=== PATIENT | female | born 1945 | race Caucasian/White ===

== ENCOUNTER 2018-04-14 15:08 | Inpatient (IN) | payer MEDICARE ==
[2018-04-14] MEDS ORDERED: Ondansetron ODT 8 MG TAB ONE (15:35)
[2018-04-14] MEDS ORDERED: Diazepam 5 MG TAB ONE (15:35)
[2018-04-14] MEDS ORDERED: Morphine 10 MG/ML VIAL ONE (15:37)
--- NOTE | 2018-04-14 16:18 | RAD ---
RIGHT HIP TWO VIEW 04/14/18 HISTORY: Pain. Trauma. COMPARISON: None. FINDINGS: There is a transcervical right femoral neck fracture with mild varus angulation and impaction. IMPRESSION: Mild varus angulated impacted transcervical right femoral neck fracture. POS: [facility]
--- NOTE | 2018-04-14 16:19 | RAD ---
RIGHT KNEE FOUR VIEW 04/14/18 HISTORY: Trauma. COMPARISON: None. FINDINGS: No significant joint effusion. No acute displaced fracture or malalignment. Mild medial compartment n arrowing and small osteophyte formation. IMPRESSION: Mild degenerative changes. No acute abnormality. POS: [facility]
--- NOTE | 2018-04-14 16:20 | RAD ---
PELVIS ONE VIEW 04/14/18 HISTORY: Fall, trauma. COMPARISON: None. FINDINGS: Over the right hip, there is some bowel gas which could be sequela of a hernia. transcervical right f emoral neck fracture. Mild varus angulation impaction. IMPRESSION: Transcervical right femoral neck fracture with impaction and varus angulation. POS: [facility]
[2018-04-14 16:49] LABS: #Eosinphils 0.1 thou/uL (0.0-0.7); #Lymphocytes 1.5 thou/uL (1.20-3.40); #Monocytes 0.7 thou/uL (0.11-0.59); #Neutrophils 7.2 thou/uL (1.40-6.50); %Basophils 0.2 % (0.0-1.0); %Lymphocytes 16.1 % (21.0-51.0); %Monocytes 6.9 % (0.0-10.0); %Neutrophils 75.9 % (42.0-75.0); Hemoglobin 12.4 g/dL (12.0-16.0); Mean Corpuscular Hemoglobin 31.7 pg (27.0-31.0); Mean Corpuscular Volume 93.4 fL (78.0-98.0); Mean Platelet Volume 6.9 fL (7.4-10.4); Platelet Count 292 thou/uL (130-400); RBC Distribution Width 11.8 % (11.5-14.5); Red Blood Cell (RBC) Count 3.92 mill/uL (4.20-5.40); White Blood Cell (WBC) Count 9.5 thou/uL (4.8-10.8)
--- NOTE | 2018-04-14 17:26 | HP ---
DATE OF ADMISSION: 04/14/2018 REQUESTING PHYSICIAN: Carina Drake M.D. ATTENDING SURGEON: Dr. He. CONSULTATIONS: Orthopedics, Dr. Dominique. HISTORY OF PRESENT ILLNESS: Patient is a 73-year-old woman who reportedly greater than 24 hours ago fell in her home, landing on her right side. The patient was self medicating with her ampl e supply of Bajadero over the time prior to presenting to the emergency room. Finally her pain was not able to be controlled. She was unable to ambulate, so [facility] underwent evaluation and examination and was noted to have a right hip fracture at which time we w ere asked to evaluate the patient for admission and obtain orthopedic consultations. The patient den ied loss of consciousness or hitting her head or any syncopal type episodes. ALLERGIES: STADOL and THORAZINE. CURRENT MEDICATIONS: Nexium, Celebrex, Bystolic, [place] 10/325, patient states she takes 6-8 per day, Xanax. PAST MEDICAL HISTORY: Migraines, chronic back pain, sciatica, gastroesophageal reflux disease, hyper tension. PAST SURGICAL HISTORY: Hemorrhoidectomy and hysterectomy. SOCIAL HISTORY: The patient denies drug, tobacco or alcohol use. She currently resides at home with family. FAMILY HISTORY: Family medical history of kidney disease. REVIEW OF SYSTEMS: Ten-point review of systems negative, unless otherwise stated. PHYSICAL EXAMINATION: VITAL SIGNS: Blood pressure 122/82, heart rate 75, respirations 18, oxygen saturation 96% on room ai r, temperature is 98.7. GENERAL: The patient is resting comfortably in bed. She is awake, alert, and oriented x3. Parker coma scale is 15. HEENT: Head is normocephalic, atraumatic. Eyes: Extraocular motion intact. PERRLA bilaterally. E ars are atraumatic without discharge. Nose is atraumatic with discharge. Oropharynx is clear. NECK: Nontender. Trachea is midline. No JVD. CHEST: Clear to auscultation with good inspiratory and expiratory effort. HEART: Regular rate and rhythm. ABDOMEN: Soft, flat, nontender with active bowel sounds. Pelvis is stable with tenderness to palpat ion to the right hip consistent with her fracture. EXTREMITIES: Neurovascularly intact x4. Capillary refill is less than 3 seconds. BACK: By report is nontender and atraumatic. LABORATORY DATA: White blood cell count 9.5, hemoglobin 12.4, hematocrit 36.6, platelets 292. Chemi stry is pending. RADIOGRAPHIC FINDINGS: 1. AP pelvis shows a transcervical right femoral neck fracture with impaction and varus angulation. Two views of the right hip show a mild varus angulated impacted transcervical right femoral neck fra cture. 2. Four views of the right knee show mild degenerative changes, no acute abnormality. ASSESSMENT AND PLAN: 1. Status post ground level fall with a remote presentation. 2. Right hip fracture. 3. Acute on chronic pain. 4. History of significant Bajadero use which may make pain control somewhat challenging. 5. History of hypertension. 6. History of anxiety. Plan will be to admit the patient to the surgical floor. She will be made n.p.o. after midnight. Sh e will have p.o. pain medication, pulmonary toilet, gastritis, mechanical VTE prophylaxis. After mid night, we will switch her pain medications to IV. The evaluation, examination, laboratory and radiog raphic findings were discussed with Dr. Salmon who plans on taking the patient to the operating room t omorrow. This case will also be discussed with Dr. He after this dictation.
[2018-04-14 17:44] LABS: ALT (SGPT) 20 U/L (8-55); AST (SGOT) 25 U/L (5-34); Alkaline Phosphatase 100 U/L (40-150); Anion Gap 16 mmol/L (10-20); BUN (Urea Nitrogen) 21 mg/dL (9.8-20.1); Bilirubin, Total 0.5 mg/dL (0.2-1.2); Calc. Creatinine Clearance 0 mL/min (70-130); Calcium 9.2 mg/dL (7.8-10.44); Carbon Dioxide 26 mmol/L (23-31); Chloride 101 mmol/L (98-107); Estimated GFR-MDRD 50; Globulin 3.7 g/dL (2.4-3.5); Glucose 105 mg/dL (83-110); Potassium 4.1 mmol/L (3.5-5.1); Protein, Total 7.7 g/dL (6.0-8.3); Sodium 139 mmol/L (136-145)
--- NOTE | 2018-04-14 17:53 | RAD ---
CHEST ONE VIEW: 04/14/18 HISTORY: Preop. FINDINGS: The cardiac silhouette is magnified by projection and upper limits of normal in size. Pulmonary vascu lature is unremarkable. mediastinum is midline. No confluent air space consolidation or evidence of p neumothorax. IMPRESSION: No active cardiopulmonary abnormalities are demonstrated. POS: [facility]
[2018-04-14] MEDS ORDERED: HYDROcodone/Acetaminophen 10/325 mg Tablet PO PRN ×2 (20:24)
[2018-04-14] MEDS ORDERED: Ondansetron HCl/PF 4 MG/2 ML Vial IVP PRN (20:24)
[2018-04-14] MEDS ORDERED: Cyclobenzaprine 10 MG TAB PO PRN (20:24)
[2018-04-14] MEDS ORDERED: Ondansetron ODT 4 MG TAB PO PRN (20:24)
[2018-04-14] MEDS ORDERED: Dextrose 50% Abboject 50 ML SYRINGE SLOW IVP PRN (20:24)
[2018-04-14] MEDS ORDERED: hydrALAZINE 20 MG/ML VIAL SLOW IVP PRN (20:24)
[2018-04-14] MEDS ORDERED: Dextrose 5% in Water 1,000 ML IV PRN (20:24)
[2018-04-14] MEDS ORDERED: Morphine CADD 1 MG/ML CADD IV PRN (20:32)
[2018-04-14] MEDS ORDERED: Diazepam 5 MG TAB PO PRN (20:34)
[2018-04-14] MEDS: Famotidine/PF 20 mg/2ml Vial SLOW IVP SCH (21:10)
[2018-04-14] MEDS ORDERED: Ibuprofen 200 MG TAB PO SCH (22:00)
[2018-04-14 23:15] VITALS: BMI 33.1
[2018-04-15] MEDS: Sodium Chloride 0.9% 1,000 ML IV SCH ×3 (00:05→19:17)
[2018-04-15] MEDS: Acetaminophen 1,000 MG in Premix Bag 1 BAG IVPB SCH ×4 (00:55→17:39)
[2018-04-15] MEDS: Ketorolac Tromethamine 30 MG/ML VIAL IVP SCH ×6 (00:55→17:40)
--- NOTE | 2018-04-15 02:13 | CON ---
DATE OF CONSULTATION: 04/14/2018 HISTORY OF PRESENT ILLNESS: Ms. Carcamo is a 73-year-old white female who was at home, fell onto he r right side and had immediate pain. The patient was able to ambulate with pain for several hours, b ut eventually the patient was unable to control her pain with the [place] she had at home and was unab le to ambulate. She was brought to the emergency room, which showed a displaced femoral neck fractur e of the right hip. She had no previous problems with her hip prior to the fall. PAST MEDICAL HISTORY: Medical illnesses: Migraines, chronic back pain, sciatica, GERD, hypertension . CURRENT MEDICATIONS: Nexium, Celebrex, Bystolic, [place], Xanax. ALLERGIES: STADOL and THORAZINE. PAST SURGICAL HISTORY: Hysterectomy and hemorrhoidectomy. SOCIAL HISTORY: The patient lives at home with family. She denies drug, tobacco, or alcohol use. FAMILY HISTORY: Positive for kidney disease. PHYSICAL EXAMINATION: GENERAL: Patient is a pleasant female, alert and oriented x3. VITAL SIGNS: Blood pressure 124/78, pulse 74, respiratory rate 16, O2 saturation 97% on room air, te mperature 98.7. HEENT: Unremarkable for age. Cranial nerves II-XII are grossly intact. NECK: Has good range of motion without pain. Thoracic and lumbar spine are nontender to palpation. LUNGS: Clear bilaterally. HEART: Regular rate and rhythm. ABDOMEN: Soft, nontender, bowel sounds positive. GENITOURINARY: Not done. EXTREMITIES: Patient has shortening and external rotation deformity of the right lower extremity. S he has good peripheral pulses and normal sensation in the right lower extremity. IMAGING: X-rays of the hip shows displaced fracture of the lower neck of the proximal femur. There are no significant arthritic changes in the hip joint. IMPRESSION: 1. Displaced femoral neck fracture of the right hip. 2. Hypertension. 3. Gastroesophageal reflux disease. 4. History of chronic back pain. 5. Migraines. PLAN: Patient will require proximal femoral replacement of the right hip. We will plan on performin g this tomorrow morning. Potential risks with the condition of surgery include but are not limited t o infection, bleeding, pain, damage to blood vessels or nerves, loosening or instability of the prost hesis. Patient may require additional surgery, DVT and PE formation. Patient's questions were answe red and agreed to the procedure.
[2018-04-15 05:27] LABS: #Eosinphils 0.3 thou/uL (0.0-0.7); #Lymphocytes 2.5 thou/uL (1.20-3.40); #Monocytes 0.7 thou/uL (0.11-0.59); #Neutrophils 4.1 thou/uL (1.40-6.50); %Basophils 0.5 % (0.0-1.0); %Eosinophils 4.1 % (0.0-10.0); %Monocytes 8.9 % (0.0-10.0); %Neutrophils 53.6 % (42.0-75.0); Hemoglobin 10.8 g/dL (12.0-16.0); Mean Corpuscular HGB CONC 33.8 g/dL (32.0-36.0); Mean Corpuscular Hemoglobin 31.9 pg (27.0-31.0); Mean Corpuscular Volume 94.5 fL (78.0-98.0); Mean Platelet Volume 7.1 fL (7.4-10.4); Platelet Count 270 thou/uL (130-400); RBC Distribution Width 11.8 % (11.5-14.5); Red Blood Cell (RBC) Count 3.39 mill/uL (4.20-5.40); White Blood Cell (WBC) Count 7.7 thou/uL (4.8-10.8)
[2018-04-15 05:37] LABS: Anion Gap 12 mmol/L (10-20); BUN (Urea Nitrogen) 20 mg/dL (9.8-20.1); Calc. Creatinine Clearance 67 mL/min (70-130); Calcium 8.5 mg/dL (7.8-10.44); Carbon Dioxide 28 mmol/L (23-31); Chloride 104 mmol/L (98-107); Estimated GFR-MDRD 53; Glucose 92 mg/dL (83-110); Potassium 3.9 mmol/L (3.5-5.1); Sodium 140 mmol/L (136-145)
[2018-04-15] MEDS ORDERED: CEFAZOLIN/Water 2 GM/20 ML SYRINGE SLOW IVP SCH (06:00)
[2018-04-15] MEDS ORDERED: Fentanyl 100 MCG/2 ML VIAL ONE (08:00)
[2018-04-15] MEDS ORDERED: CEFAZOLIN 1 GM VIAL ONE (08:01)
[2018-04-15] MEDS ORDERED: Sodium Chloride 0.9% 100 ML ONE (08:02)
[2018-04-15] MEDS ORDERED: HYDROcodone/Acetaminophen 10/325 mg Tablet PO PRN (08:17)
[2018-04-15] MEDS ORDERED: ALPRAZolam 0.5 MG TAB PO PRN (08:17)
[2018-04-15] MEDS ORDERED: Ondansetron ODT 4 MG TAB PO PRN (08:22)
[2018-04-15] MEDS ORDERED: Ondansetron HCl/PF 4 MG/2 ML Vial IVP PRN ×3 (08:22→10:48)
[2018-04-15] MEDS ORDERED: Bisacodyl 10 MG SUPP PR PRN (08:22)
[2018-04-15] MEDS ORDERED: Cepastat Lozenges 1 LOZ PO PRN (08:22)
[2018-04-15] MEDS ORDERED: Fleet Enema 133 ML BOT PR PRN (08:22)
[2018-04-15] MEDS ORDERED: Milk Of Magnesia 30 ML UDCUP PO PRN (08:22)
[2018-04-15] MEDS: CEFAZOLIN/Water 2 GM/20 ML SYRINGE SLOW IVP SCH ×2 (09:00→17:40)
[2018-04-15] MEDS: Enoxaparin Sodium 40 MG/0.4 ML SYRINGE SC SCH (09:01)
[2018-04-15] MEDS: Ferrous Gluconate 324 MG TAB PO SCH ×2 (09:01→21:16)
[2018-04-15] MEDS: Famotidine/PF 20 mg/2ml Vial SLOW IVP SCH (09:01)
[2018-04-15] MEDS ORDERED: Neomycin-Polymyxin 1 ML AMP ONE (09:01)
[2018-04-15] MEDS: Senokot S 8.6-50 MG TAB PO SCH ×2 (09:01→21:16)
[2018-04-15] MEDS: Multivitamin W/ Minerals 1 TAB PO SCH (09:01)
[2018-04-15] MEDS ORDERED: Bupivacaine HCl 0.5%/Epinephrine 1:200,000/PF 30 ml Vial ONE (09:33)
[2018-04-15] MEDS ORDERED: PHENYLEPHRINE-NS 100 MCG/ML 10 ML SYRINGE ONE ×2 (09:44→15:11)
[2018-04-15] MEDS ORDERED: Meperidine HCl/PF 25 MG/ML VIAL SLOW IVP PRN (10:06)
[2018-04-15] MEDS ORDERED: Zolpidem Tartrate 5 MG TAB PO PRN ×2 (10:09→10:48)
[2018-04-15] MEDS ORDERED: diphenhydrAMINE 50 MG/ML VIAL IM PRN (10:09)
[2018-04-15] MEDS ORDERED: diphenhydrAMINE 50 MG/ML VIAL IVP PRN (10:09)
[2018-04-15] MEDS ORDERED: diphenhydrAMINE 25 MG CAP PO PRN ×2 (10:09→10:48)
[2018-04-15] MEDS ORDERED: Naloxone HCl 0.4 mg/ml Vial IV PRN ×2 (10:09→10:48)
[2018-04-15] MEDS ORDERED: Communication Order-Pharmacy FS SCH (10:15)
[2018-04-15] MEDS ORDERED: fentaNYL Citrate/PF 2,000 MCG in Sodium Chloride 0.9% 60 ML IV PRN (10:48)
[2018-04-15] MEDS ORDERED: diphenhydrAMINE 50 MG/ML VIAL IM/IV PRN (10:48)
--- NOTE | 2018-04-15 11:26 | OP ---
DATE OF OPERATION: 04/15/2018 PREOPERATIVE DIAGNOSIS: Displaced femoral neck fracture of the right hip. POSTOPERATIVE DIAGNOSIS: Displaced femoral neck fracture of the right hip. PROCEDURE: Proximal femoral replacement using a bipolar prosthesis of the right hip. SURGEON: Jared Dominique M.D. ANESTHESIA: General. TECHNIQUE: The patient was given preoperative IV antibiotics, taken to the operating room, placed in the supine position. Satisfactory general anesthesia was performed. The patient was placed in the left lateral decubitus position. All bony prominences were well-padded, and the right hip and lower extremity were sterilely prepped and draped in usual fashion. A longitudinal incision was made over the lateral aspect of the hip, centered over the greater trochanter, approximately 6-7 inches in garrett th. Anterolateral approach was made to the hip joint. Anterior capsule was excised. The fracture o f the femoral neck was identified. The femoral head was removed and was measured as 47 mm in diamete r. There were no arthritic changes over the femoral head or in the acetabulum. The few bony fragmen ts were removed from the acetabulum. Proximal femur was then prepared initially with a box osteotome , then a hand Charnley reamer was then sequentially rasped up to #5 and the proximal femoral rasp was sequentially rasped up to 5 where it was noted to have excellent fit. Calcar reamer was then utiliz ed and different trials were then placed. The [employer] instrumentation was utilized. The +5 nec k with the 28 mm head and 47 mm bipolar was found to have the excellent fit and hoahaoism of leg le ngth. Trials were removed, and the hip joint was copiously irrigated with antibiotic solution using the high-speed international trade compliance manager. The prosthesis was then inserted into the proximal femur. This was a Summ it size 5 basic press fit femoral stem with a +5 neck, 28 mm head, and a 47 mm bipolar. Again, this was known to have excellent fit in the proximal femur. The hip joint was reduced, placed through a r jun of motion, is very stable, and had good range of motion. Wound again was irrigated and then gianluca sed using #2 Vicryl for the anterior fibers of the abductor muscles, #2 Vicryl for the iliotibial ban d, 0 Vicryl for the fat and subcutaneous tissue, and the skin was closed with skin oren. The woun d was then infiltrated with 30 mL of 0.5% Marcaine with epinephrine. Sterile dressing was applied. The patient was awakened, extubated, and transferred to the recovery room in stable condition. ESTIMATED BLOOD LOSS: 250 mL. COMPLICATIONS: None.
--- NOTE | 2018-04-15 13:18 | RAD ---
TWO VIEWS OF THE RIGHT HIP: DATE: 04/15/18. COMPARISON: 04/14/18. HISTORY: Evaluate hip following arthroplasty. FINDINGS: There is postoperative gas adjacent to the proximal right femur laterally. There is a new right hip arthroplasty with no evidence for hardware failure. IMPRESSION: Postoperative changes consistent with recent right total hip arthroplasty. No acute findings. POS: [facility]
[2018-04-15] MEDS ORDERED: Lidocaine 1% PF 5 ML VIAL ONE (15:11)
[2018-04-15] MEDS ORDERED: Ondansetron HCl/PF 4 MG/2 ML Vial ONE (15:11)
[2018-04-15] MEDS ORDERED: ePHEDrine/0.9% NaCl/PF SYRINGE 50 mg/10 ml ONE (15:11)
[2018-04-15] MEDS ORDERED: Glycopyrrolate 0.2 MG/ML 5 ML SYRINGE ONE (15:11)
[2018-04-15] MEDS ORDERED: Dexamethasone 20 MG/5 ML VIAL ONE (15:11)
[2018-04-15] MEDS ORDERED: Metoclopramide HCl 10 MG/2 ML VIAL ONE (15:11)
[2018-04-15] MEDS ORDERED: PROPOFOL 200 MG/20 ML VIAL ONE (15:11)
--- NOTE | 2018-04-15 16:16 | HP ---
CHIEF COMPLAINT: Fall with right hip pain. HISTORY OF PRESENT ILLNESS: The patient is a 73-year-old female who tripped over a blanket at the fo ot of her bed and fell on her right hip. She developed severe pain, really could not get back up, bu t she had her phone and she called her who helped to get back in bed. She felt like next day that she be feeling better and so she came into the emergency room and was found to have a right hip fracture. PAST MEDICAL HISTORY: Chronic back pain, torn meniscus, hypertension. PAST SURGICAL HISTORY: Hemorrhoidectomy, I&D of Staph infection suprapubic, oral surgery and bladder suspension. 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 She is . No tobacco or alcohol. FAMILY HISTORY: Noncontributory. MEDICATIONS: Include Nexium, Celebrex, Rocephin, Bystolic, [place] and Xanax. PHYSICAL EXAMINATION: VITAL SIGNS: Temperature 98, pulse 72 and blood pressure 92/56. GENERAL: Well-developed, well-nourished female in no apparent distress. HEENT: Unremarkable. LUNGS: Clear. HEART: Regular rate and rhythm. ABDOMEN: Soft, nondistended, nontender. MUSCULOSKELETAL: She has a bandage in place in the right hip. Good pulses. LABORATORY DATA AND IMAGING DATA: White count 7.7, hemoglobin and hematocrit 10 and 32, platelet cou nt 270. Electrolytes are fine. X-ray shows an angulated impacted transcervical right femoral neck f racture. Chest x-ray unremarkable, pelvic x-ray unremarkable as well as the knee. ASSESSMENT: Right hip fracture. PLAN: She was in surgery this morning. She is out now. She is doing well. We will discontinue pos toperative care.
[2018-04-15] MEDS: Famotidine 20 MG TAB PO SCH (21:16)
[2018-04-15] MEDS ORDERED: Ibuprofen 200 MG TAB PO SCH (22:00)
[2018-04-16] MEDS: Ketorolac Tromethamine 30 MG/ML VIAL IVP SCH ×4 (00:41→17:15)
[2018-04-16 04:09] LABS: Hemoglobin 9.3 g/dL (12.0-16.0); Mean Corpuscular Hemoglobin 32.9 pg (27.0-31.0); Mean Corpuscular Volume 94.2 fL (78.0-98.0); Mean Platelet Volume 6.9 fL (7.4-10.4); Platelet Count 229 thou/uL (130-400); RBC Distribution Width 11.6 % (11.5-14.5); Red Blood Cell (RBC) Count 2.82 mill/uL (4.20-5.40); White Blood Cell (WBC) Count 8.6 thou/uL (4.8-10.8)
[2018-04-16] MEDS: Sodium Chloride 0.9% 1,000 ML IV SCH ×2 (06:50→17:18)
[2018-04-16] MEDS: Senokot S 8.6-50 MG TAB PO SCH ×2 (10:40→22:03)
[2018-04-16] MEDS: Famotidine 20 MG TAB PO SCH ×2 (10:40→22:03)
[2018-04-16] MEDS: Multivitamin W/ Minerals 1 TAB PO SCH (10:40)
[2018-04-16] MEDS: Ferrous Gluconate 324 MG TAB PO SCH ×2 (10:40→22:03)
[2018-04-16] MEDS: Enoxaparin Sodium 40 MG/0.4 ML SYRINGE SC SCH (10:41)
--- NOTE | 2018-04-16 15:03 | PRG ---
DATE OF SERVICE: 04/16/2018 SUBJECTIVE: The patient is hospital day 2, postop day #1, status post ground level fall with a remot e presentation, which she sustained a right hip fracture. She subsequently undergone open reduction internal fixation of the same. She tolerated this procedure well. The patient had a previous signif icant daily narcotic use due to this chronic back pain necessitating some difficulty getting her pain controlled. Anesthesia has started the patient on a fentanyl PURCHASING CONTRACTING CLERK, which the patient states it helps "for the most part." Today is the first day she is going to try to work with physical and occupatio nal therapy. She is tolerating a diet. She has no other complaints. PHYSICAL EXAMINATION: VITAL SIGNS: Temperature is 98.2, heart rate 92, blood pressure 105/65, respirations 16, oxygen satu ration is 95% on room air. GENERAL: The patient is resting comfortably in bed. She is awake, alert, and oriented x3. [place] coma scale is 15. Patient was working with physical and occupational therapy, smiling, laughing, javon eared comfortable yet stated her pain was 9/10. LUNGS: Clear to auscultation bilaterally with good inspiratory and expiratory effort. HEART: Regular rate and rhythm. ABDOMEN: Soft, flat, nontender with active bowel sounds. Pelvis is stable. EXTREMITIES: Neurovascularly intact x4. Postop dressing is clean, dry, and intact. LABORATORY DATA: White blood cell count 8.6, hemoglobin 9.3, hematocrit 26.6, platelets 229. There are no radiographs to review this morning. ASSESSMENT AND PLAN: 1. Status post ground level fall with remote presentation. 2. Status post open reduction internal fixation of right hip fracture. 3. Chronic narcotic use, currently on PURCHASING CONTRACTING CLERK. Plan will be to discuss with the anesthesiologist to try to transition the patient to p.o. pain medic ation, so that she may be placed hopefully in an inpatient rehab. Should she required prolonged PURCHASING CONTRACTING CLERK, she may require care home or swing bed facility. Otherwise, we will remain continuing support isadora care.
--- NOTE | 2018-04-16 15:51 | TCOM ---
DATE OF SERVICE: 04/16/2018 Ms. Carcamo one-day status post bipolar prosthesis of the right hip. She is doing well. She was ab le to get up with therapy and walked out in the [place] for short distances. She was sitting up in a ch air. The patient is afebrile. Vital signs are stable. Laboratory shows hemoglobin 9.3, hematocrit 26.6. The right lower extremity is neurovascularly intact. PLAN: The patient will continue with physical and occupational therapy. We look at possible going t o rehab at discharge.
[2018-04-17] MEDS: Ketorolac Tromethamine 30 MG/ML VIAL IVP SCH ×2 (01:10→06:07)
[2018-04-17] MEDS: Sodium Chloride 0.9% 1,000 ML IV SCH ×2 (03:00→14:29)
[2018-04-17 04:28] LABS: #Eosinphils 0.2 thou/uL (0.0-0.7); #Lymphocytes 2.4 thou/uL (1.20-3.40); #Monocytes 0.7 thou/uL (0.11-0.59); #Neutrophils 3.6 thou/uL (1.40-6.50); %Basophils 0.7 % (0.0-1.0); %Eosinophils 2.7 % (0.0-10.0); %Lymphocytes 34.9 % (21.0-51.0); %Neutrophils 51.6 % (42.0-75.0); Hemoglobin 8.6 g/dL (12.0-16.0); Mean Corpuscular HGB CONC 34.5 g/dL (32.0-36.0); Mean Corpuscular Volume 95.7 fL (78.0-98.0); Mean Platelet Volume 6.7 fL (7.4-10.4); Platelet Count 216 thou/uL (130-400); RBC Distribution Width 11.9 % (11.5-14.5); Red Blood Cell (RBC) Count 2.59 mill/uL (4.20-5.40); White Blood Cell (WBC) Count 6.9 thou/uL (4.8-10.8)
[2018-04-17 04:41] LABS: Anion Gap 9 mmol/L (10-20); BUN (Urea Nitrogen) 16 mg/dL (9.8-20.1); Calc. Creatinine Clearance 95 mL/min (70-130); Carbon Dioxide 26 mmol/L (23-31); Chloride 109 mmol/L (98-107); Estimated GFR-MDRD 79; Glucose 100 mg/dL (83-110); Magnesium 1.8 mg/dL (1.6-2.6); Phosphorus 2.5 mg/dL (2.3-4.7); Potassium 3.5 mmol/L (3.5-5.1); Sodium 140 mmol/L (136-145)
[2018-04-17] MEDS ORDERED: Gabapentin 100 MG CAP PO SCH (09:00)
[2018-04-17] MEDS: Enoxaparin Sodium 40 MG/0.4 ML SYRINGE SC SCH (09:57)
[2018-04-17] MEDS: Senokot S 8.6-50 MG TAB PO SCH ×2 (09:58→20:26)
[2018-04-17] MEDS: Multivitamin W/ Minerals 1 TAB PO SCH (09:58)
[2018-04-17] MEDS: Ferrous Gluconate 324 MG TAB PO SCH ×2 (09:58→20:27)
[2018-04-17] MEDS: Famotidine 20 MG TAB PO SCH ×2 (09:58→20:24)
[2018-04-17] MEDS: HYDROcodone/Acetaminophen 10/325 mg Tablet PO SCH ×3 (11:28→20:24)
[2018-04-17] MEDS: Polyethylene Glycol 3350 17 GM Packet PO SCH (11:29)
--- NOTE | 2018-04-17 12:24 | PRG-2 ---
DATE OF SERVICE: 04/17/2018 SUBJECTIVE: This is a 73-year-old female, hospital day #3, POD 2, status post proximal femoral repla cement using bipolar prosthesis of the right hip. She reports that she is doing well this morning. She states that she has some discomfort and fatigue after working with physical therapy. Otherwise, states she is okay. The patient reports tolerating her diet. Denies any nausea, vomiting, chest neelam n or shortness of breath. PHYSICAL EXAMINATION: VITAL SIGNS: Temperature 98.9, heart rate 99, respirations 18, pulse ox 92% on room air, blood press ure 126/78. GENERAL: The patient is lying in bed in no acute distress. The patient and I carried on a pleasant conversation during this time. LUNGS: Clear to auscultation bilaterally with good inspiratory effort. HEART: Regular rate and rhythm with no murmurs. ABDOMEN: Soft, nontender with positive bowel sounds. EXTREMITIES: Neurovascularly intact x4. NEUROLOGIC: Awake, alert and oriented x3. No focal deficits. LABORATORY DATA: CBC; white blood count 6.9, hemoglobin 8.6, hematocrit 24.8, MCV 85.7, platelet cou nt 216. BMP: Sodium 140, potassium 3.5, chloride 109, bicarbonate 26, BUN 16, creatinine 0.79, gluc ose 100. ASSESSMENT: 1. Status post ground level fall with remote presentation. 2. Status post proximal femoral replacement using bipolar prosthesis of right hip. 3. Chronic narcotic use. PLAN: We discontinued the MAP DRAFTER pump today. The patient has been switched to [place] 10 q.4h. DISPOSITION: The patient is discharged to inpatient rehab in the next 1-[address] Foreman saw this patient and we discussed the treatment plan.
[2018-04-17] MEDS ORDERED: HYDROcodone/Acetaminophen 10/325 mg Tablet PO SCH (15:30)
[2018-04-17] MEDS: Gabapentin 100 MG CAP PO SCH ×2 (16:22→20:27)
[2018-04-17] MEDS: cloNIDine 0.1 MG TAB PO SCH (20:21)
[2018-04-17] MEDS: Ibuprofen 200 MG TAB PO SCH (21:39)
[2018-04-18] MEDS: HYDROcodone/Acetaminophen 10/325 mg Tablet PO SCH ×5 (00:50→16:29)
[2018-04-18 04:18] LABS: #Eosinphils 0.2 thou/uL (0.0-0.7); #Lymphocytes 1.6 thou/uL (1.20-3.40); #Monocytes 0.6 thou/uL (0.11-0.59); #Neutrophils 3.5 thou/uL (1.40-6.50); %Basophils 0.6 % (0.0-1.0); %Eosinophils 2.9 % (0.0-10.0); %Lymphocytes 27.6 % (21.0-51.0); %Monocytes 10.8 % (0.0-10.0); %Neutrophils 58.2 % (42.0-75.0); Hemoglobin 7.8 g/dL (12.0-16.0); Mean Corpuscular Hemoglobin 32.2 pg (27.0-31.0); Mean Corpuscular Volume 94.8 fL (78.0-98.0); Mean Platelet Volume 7.1 fL (7.4-10.4); Platelet Count 251 thou/uL (130-400); RBC Distribution Width 11.8 % (11.5-14.5); Red Blood Cell (RBC) Count 2.43 mill/uL (4.20-5.40)
[2018-04-18 04:42] LABS: Anion Gap 11 mmol/L (10-20); BUN (Urea Nitrogen) 16 mg/dL (9.8-20.1); Calc. Creatinine Clearance 92 mL/min (70-130); Calcium 8.1 mg/dL (7.8-10.44); Carbon Dioxide 23 mmol/L (23-31); Chloride 110 mmol/L (98-107); Estimated GFR-MDRD 76; Glucose 112 mg/dL (83-110); Magnesium 1.6 mg/dL (1.6-2.6); Phosphorus 2.6 mg/dL (2.3-4.7); Potassium 3.2 mmol/L (3.5-5.1); Sodium 141 mmol/L (136-145)
[2018-04-18] MEDS: Enoxaparin Sodium 40 MG/0.4 ML SYRINGE SC SCH (11:12)
[2018-04-18] MEDS: Polyethylene Glycol 3350 17 GM Packet PO SCH (11:14)
[2018-04-18] MEDS: Multivitamin W/ Minerals 1 TAB PO SCH (11:15)
[2018-04-18] MEDS: Famotidine 20 MG TAB PO SCH (11:16)
[2018-04-18] MEDS: Gabapentin 100 MG CAP PO SCH ×2 (11:16→14:48)
[2018-04-18] MEDS: cloNIDine 0.1 MG TAB PO SCH (11:17)
[2018-04-18] MEDS: Ferrous Gluconate 324 MG TAB PO SCH (11:17)
[2018-04-18] MEDS: Senokot S 8.6-50 MG TAB PO SCH (11:18)
[2018-04-18] MEDS: Ibuprofen 200 MG TAB PO SCH (14:48)
[2018-04-18 15:29] VITALS: BP 100/65; TEMP 99.2
--- NOTE | 2018-04-18 23:31 | DIS-2 ---
DATE OF ADMISSION: 04/14/2018 DATE OF DISCHARGE: 04/18/2018 ADMITTING ATTENDING: Trauma, Galen Medina PA-C. DISCHARGING SERVICE: Trauma, Dr. Yogi Foreman, Dr. Guilherme Pereyra. CONSULTATIONS: Orthopedics, Dr. Jared Dominique. PROCEDURES: Right hip x-ray 2-view showing mild varus angulation impacted transcervical femoral neck fracture on the right, AP pelvis x-ray transcervical right femoral neck fracture with impaction and varus angulation. Two-view of the right hip x-ray postoperative changes consistent with recent right total hip arthroplasty. No acute findings. Chest x-ray: No active cardiopulmonary abnormalities d emonstrated. Surgical procedure done on the 04/15/2018, a proximal femoral replacement using a bipolar prosthesis of the right hip. PRIMARY DIAGNOSIS: Displaced femoral neck fracture of the right hip. SECONDARY DIAGNOSES: Chronic back pain, on high doses of narcotics; hypertension; anxiety. DISCHARGE MEDICATIONS: 1. Clonidine 0.1 mg b.i.d. for increased pain threshold. 2. Cyclobenzaprine 5 mg p.o. t.i.d. p.r.n. for muscle spasms. 3. Ferrous gluconate for anemia. 4. Gabapentin 100 mg for chronic back pain and nerve pain. 5. Ibuprofen 400 mg q.8 hours. 6. Multivitamin 1 p.o. daily. 7. MiraLax 1 packet of 17 grams p.o. daily. 8. Senokot 2 tablets p.o. b.i.d. 9. Alprazolam 0.5 mg tablet q.4 hours p.r.n. anxiety. 10. Hydrocodone 10 mg. 11. [place] 10, 1-2 tablets q.4 hours. DISCONTINUED MEDICATIONS: None. HISTORY OF PRESENT ILLNESS AND HOSPITAL COURSE: This is a 73-year-old female who fell at h ome on her right side. She was diagnosed with a right displaced femoral neck fracture and was admitt ed to the Trauma Service. Ortho was consulted and performed a proximal femoral replacement using bip olar prosthesis of the right hip. The patient tolerated procedure well and worked with drafter geophysical apy and occupational therapy, progressing towards her goals during her stay. Patient was given choic e between rehab and Home Health for physical therapy. It was decided that she was progressing too we for rehabilitation and has been accepted with [facility] for home health. At the time of discharge, the patient is stable, has been pain controlled and questions asked and answered. DISPOSITION: Stable. DISCHARGE INSTRUCTIONS: 1. Location: Home with home health. 2. Diet: Low carb diet. 3. Activity: As tolerated. 4. Follow up with orthopedic surgeon in 1-2 weeks and with primary care physician in 1-[address] Foreman saw this patient and we discussed the treatment plan.
== END 2018-04-18 18:14 | disposition home health service (06) | DRG 470 ==
LOC: ERS 15:08 → SJJU 20:22
PROVIDERS: ADMIT Surgery; ATTEND Surgery
PROC: 0SR90JA Replacement of Right Hip Joint with Synthetic Substitute, Uncemented, Open Approach (ICD-10-PCS; principal; 2018-04-15)
DX: S72.001A Fracture of unspecified part of neck of right femur, initial encounter for closed fracture (principal); K21.9 Gastro-esophageal reflux disease without esophagitis; I10 Essential (primary) hypertension; G89.29 Other chronic pain; M54.9 Dorsalgia, unspecified; F41.9 Anxiety disorder, unspecified; W19.XXXA Unspecified fall, initial encounter; Y92.009 Unspecified place in unspecified non-institutional (private) residence as the place of occurrence of the external cause; Z79.899 Other long term (current) drug therapy; G43.909 Migraine, unspecified, not intractable, without status migrainosus; Z88.6 Allergy status to analgesic agent; Z88.5 Allergy status to narcotic agent
CPT/HCPCS: 36415; 71045; 72170; 80048; 80053; 83735; 84100; 85025; 85027; 93005; 96372; G8978-GP-CL; G8979-GP-CJ; G8987-GO-CK; G8988-GO-CI; J0131; J0670; J0690; J1100; J1650; J1885; J2001; J2270; J2274; J2405; J2704; J2765; J3010; J7050; S0028

== ENCOUNTER 2018-09-07 15:44 | Outpatient (CLI) | payer MEDICARE ==
--- NOTE | 2018-09-07 17:45 | RAD ---
THREE VIEWS RIGHT KNEE: 09/07/18 HISTORY: Osteoporosis with current pathological fracture. Injury to knee after a fall. COMPARISON: 04/14/18. FINDINGS: There is no evidence of a fracture or dislocation involving the right knee. There is osteophyte seen involving the medial joint compartment. No joint space narrowing is seen. There is no joint effusion appreciated. IMPRESSION: No acute osseous abnormality right knee. POS: [facility]
--- NOTE | 2018-09-07 17:46 | RAD ---
LEFT KNEE FOUR VIEWS: 09/07/18 HISTORY: Left knee pain. FINDINGS: Joint spaces are preserved. Very mild osteophytosis. No acute fracture, dislocation, or aggressive os seous erosions. No fluid distention of the suprapatellar bursa. IMPRESSION: Very mild degenerative changes. No joint space loss or acute osseous abnormality. POS: [facility]
--- NOTE | 2018-09-07 18:53 | BD ---
DEXA BONE DENSITOMETRY: (Dual energy X-ray Absorptiometry) Date: 09/07/18 HISTORY: 73-year-old white female for baseline, postmenopausal, age-related osteoporosis screening examination . Height: 64 Weight: 178 lbs. Age of menopause: 42 years. COMPARISON: None available. FINDINGS: The bone mineral density (BMD) is given in grams per square centimeter (g/cm2): LUMBAR SPINE: BMD(g/cm2) T-score Z-score L1: 0.761 -2.1 -0.1 L2: 0.934 -0.9 1.3 L3: 0.930 -1.4 0.9 L4: 1.259 1.8 4.1 Total: 0.982 -0.6 1.6 There are sclerotic degenerative changes at L3-4 and L4-5. This elevates the average bone mineral den sity of the lumbar spine. HIP: Femoral neck: 0.529 -2.9 -1.0 Total: 0.692 -2.0 -0.5 IMPRESSION: 1. The total bone mineral density of the lumbar spine is in the normal range. However, sclerotic deg enerative changes in the lower lumbar spine elevate the average bone mineral density, and thereby cou ld result in underestimation of the fracture risk. 2. The bone mineral density of the femoral neck is osteoporotic. Fracture risk is high. EFREM Santiago POS: [facility]
== END 2018-09-07 15:45 | disposition home or self-care (01) ==
LOC: BICRAD 15:44
PROVIDERS: ATTEND Family Medicine
DX: M81.0 Age-related osteoporosis without current pathological fracture (principal); M17.12 Unilateral primary osteoarthritis, left knee
CPT/HCPCS: 77080

== ENCOUNTER 2020-11-10 15:30 | Outpatient (CLI) | payer MEDICARE | END 2020-11-10 15:31 | disposition home or self-care (01) | LOC: BICRAD 15:30 | PROVIDERS: ATTEND Family Medicine | DX: M51.26 Other intervertebral disc displacement, lumbar region (principal); M25.551 Pain in right hip; M47.26 Other spondylosis with radiculopathy, lumbar region; M41.9 Scoliosis, unspecified; Z96.641 Presence of right artificial hip joint | CPT/HCPCS: 72100 ==

== ENCOUNTER 2024-03-01 14:21 | Emergency (ER) | payer OTHER ==
[2024-03-01 15:17] LABS: #Basophils 0.04 10x3/uL (0.0-0.2); %Basophils 0.5 % (0.0-1.0); %Eosinophils 0.6 % (0.0-10.0); %Lymphocytes 25.9 % (21.0-51.0); %Monocytes 5.5 % (0.0-10.0); %Neutrophils 67.2 % (42.0-75.0); Hematocrit 40.9 % (36.0-47.0); Hemoglobin 13.4 g/dL (12.0-16.0); Mean Corpuscular HGB CONC 32.8 g/dL (32.0-36.0); Mean Corpuscular Hemoglobin 30.7 pg (27.0-31.0); Mean Corpuscular Volume 93.8 fL (78.0-98.0); Mean Platelet Volume 9.4 fL (7.4-10.4); Platelet Count 291 10x3/uL (130-400); RBC Distribution Width 13.1 % (11.5-14.5); Red Blood Cell (RBC) Count 4.36 mill/uL (4.20-5.40)
[2024-03-01 15:32] LABS: ALT (SGPT) 11 U/L (8-55); AST (SGOT) 15 U/L (5-34); Albumin 3.9 g/dL (3.4-4.8); Alkaline Phosphatase 109 U/L (40-110); Anion Gap 11 mmol/L (10-20); BUN (Urea Nitrogen) 12 mg/dL (9.8-20.1); Bilirubin, Total 0.6 mg/dL (0.2-1.2); Calc. Creatinine Clearance 0 mL/min (70-130); Calcium 9.1 mg/dL (7.8-10.44); Carbon Dioxide 31 mmol/L (23-31); Chloride 104 mmol/L (98-107); Estimated GFR 78; Globulin 3.1 g/dL (2.4-3.5); Glucose 118 mg/dL (83-110); Potassium 3.1 mmol/L (3.5-5.1); Sodium 143 mmol/L (136-145)
[2024-03-01 15:37] LABS: Troponin I 0.015 ng/mL (< 0.028)
[2024-03-01] MEDS ORDERED: Potassium Chloride 20 MEQ TAB ONE (16:10)
== END 2024-03-01 16:53 | disposition home or self-care (01) ==
LOC: ERS 14:21
DX: I10 Essential (primary) hypertension (principal); E87.6 Hypokalemia
CPT/HCPCS: 36415; 71045; 80053; 84484; 85025; 93005